=== PATIENT | male | born 1975 | race Two or more races ===

== ENCOUNTER 2022-12-09 23:46 | Emergency (ER) | payer SELFPAY ==
[2022-12-10] MEDS ORDERED: SODIUM CHL 3% 500 ML IV ONE (00:15)
[2022-12-10] MEDS ORDERED: PROPOFOL 10 MG/ML 20 ML IV ONE (00:15)
[2022-12-10] MEDS ORDERED: ROCURONIUM 10MG/ML 10ML VIAL IV ONE (00:15)
[2022-12-10 00:30] VITALS: BP 230/120
[2022-12-10] MEDS ORDERED: PROPOFOL 100 ML IV ONE (00:33)
[2022-12-10 00:53] LABS: Basophils # (auto) 0 10 ^3/uL (0-0.2); Eosinophils # (auto) 0 10 ^3/uL (0-0.8); Lymphocytes # (auto) 0.5 10 ^3/uL (0.4-5.4); Monocytes # (auto) 0.7 10 ^3/uL (0-1.3)
[2022-12-10 00:55] LABS: Basophils % (auto) 0.3 % (0.0-2.0); Hematocrit 36.9 % (41.0-53.0); Lymphocytes % (auto) 7.8 % (10.0-50.0); Mean Corpuscular Hemoglobin 35.9 pg (28.0-32.0); Mean Corpuscular Hgb Conc. 35.1 g/dL (32.0-36.0); Mean Corpuscular Volume 102.1 fL (80.0-100.0); Neutrophils # (auto) 4.9 10 ^3/uL (1.6-8.6); Neutrophils % (auto) 80.9 % (37.0-80.0); Red Blood Cells 3.61 10^6/uL (4.5-5.90); Red Cell Distribution Width 13.9 % (11.8-14.3)
[2022-12-10 01:06] LABS: INR 1.2 (0.9-1.15)
[2022-12-10 01:16] LABS: Acetaminophen < 2.0 ug/mL (10-30); Salicylate < 1.7 mg/dL (2.8-20.0)
[2022-12-10 01:19] LABS: Albumin 3.8 g/dL (3.4-5.0); BUN/Creatinine Ratio 5.4 (10.0-20.0); Calcium 8.3 mg/dL (8.5-10.1); Lactic Acid w/Reflex 3.8 mmol/L (0.4-2.0); Potassium 3.4 mmol/L (3.5-5.1)
[2022-12-10 01:28] LABS: Bilirubin, Total 1.3 mg/dL (0.2-1.0); Total Protein 8.3 g/dL (6.4-8.2)
[2022-12-10] MEDS ORDERED: levETIRAcetam 500 MG/5ML INJ IV ONE (01:30)
[2022-12-10] MEDS ORDERED: PROPOFOL 100 ML IV SCH (01:45)
[2022-12-10 02:00] VITALS: BP 178/76
[2022-12-10 02:04] VITALS: BP 149/53
== END 2022-12-10 03:45 | disposition short-term general hospital (02) ==
LOC: ER 23:46 → EDBD 23:46 → ER 12-10 03:45
DX: I62.9 Nontraumatic intracranial hemorrhage, unspecified (principal); S06.5XAA Traumatic subdural hemorrhage with loss of consciousness status unknown, initial encounter; R40.4 Transient alteration of awareness; R06.03 Acute respiratory distress; X58.XXXA Exposure to other specified factors, initial encounter; Y93.89 Activity, other specified; Y92.89 Other specified places as the place of occurrence of the external cause; Y99.8 Other external cause status
CPT/HCPCS: 31500; 36415; 36600; 70450; 71045; 80053; 80320; 80329; 82010; 82553; 82805; 83605; 83690; 83880; 83930; 84484; 85025; 85610; 85730; 93005; 96365; 96367; 99291; J1953; J2704; J7060; 94002